=== PATIENT | female | born 1940 | race Caucasian/White ===

== ENCOUNTER 2021-07-08 16:23 | Inpatient (IN) | payer OTHER, MEDICAID ==
[~2021-07-08] VITALS: Ht 157.5 cm; Wt 39.9 kg
[~2021-07-08 16:23] MED LIST: ASPI81TA87 PO; ATOR40TA71 PO; FAMO-290 PO; HYDR-4061 PO; LISI-893 PO; METF-444 PO; MIRT-93 PO; NYSTPW TP; QUET200T30 PO; QUET50TA PO; SITA50 PO
[2021-07-08] MEDS ORDERED: CefTRIAXone 1 GM/DEXTROSE 50 ML IV ONE (16:45)
[2021-07-08] MEDS ORDERED: SODIUM CHLORIDE 0.9% 1,000 ML IV ONE (16:45)
[2021-07-08] MEDS ORDERED: VANCOMYCIN HCL 1 GM/D5% WATER 200 ML IV ONE (16:45)
[2021-07-08 17:32] LABS: BASOPHILS % (AUTO) 0.1 % (0.0-2.0); EOSINOPHILS % (AUTO) 0.1 % (1.0-6.0); HEMOGLOBIN 8.4 g/dL (12.0-16.0); LYMPHOCYTES # (AUTO) 1.5 K/uL (1.0-4.8); LYMPHOCYTES % (AUTO) 11.4 % (22.0-44.0); MEAN CORPUSCULAR HEMOGLOBIN 30.7 pg (26.0-34.0); MEAN CORPUSCULAR HGB CONC 32.1 G/dL (31.0-37.0); MEAN CORPUSCULAR VOLUME 96 fL (80-100); MONOCYTES # (AUTO) 0.6 K/uL (0.1-1.0); MONOCYTES % (AUTO) 4.8 % (2.0-9.0); NEUTROPHILS # (AUTO) 11.1 K/uL (1.8-7.7); NEUTROPHILS % (AUTO) 83.6 % (40.0-70.0); PLATELET COUNT (AUTO) 197 K/uL (150-450); RED BLOOD CELL COUNT(AUTO) 2.72 MIL/uL (4.00-5.20)
[2021-07-08 17:53] LABS: LACTIC ACID 7.9 mmol/L (0.4-2.0)
[2021-07-08 17:56] LABS: ANION GAP 17 mmol/L (8-16); CALCIUM, TOTAL 7.7 mg/dL (8.8-10.5); CARBON DIOXIDE 20 mmol/L (22-29); CHLORIDE 109 mmol/L (98-107); CREATININE 2.46 mg/dL (0.60-1.30); GLOMERULAR FILTR. RATE CALC 19 mL/min (>60); GLUCOSE,RANDOM 118 mg/dL (70-110); POTASSIUM 4.4 mmol/L (3.5-5.1); SODIUM SERUM 146 mmol/L (136-145); UREA NITROGEN, BLOOD 80 mg/dL (7-18)
[2021-07-08 18:01] LABS: ALANINE AMINOTRANSFERASE 9 U/L (12-78); ALBUMIN 1.3 g/dL (3.4-5.0); ALKALINE PHOSPHATASE 49 U/L (46-116); ASPARTATE AMINOTRANSFERASE 38 U/L (15-37); BILIRUBIN,TOTAL 0.5 mg/dL (0.1-1.0); TOTAL PROTEIN, SERUM 4.9 g/dL (6.4-8.2)
[2021-07-08] MEDS ORDERED: *CLINICAL-LEVOFLOXACIN IVPB DOSING CLINICAL ONE (18:30)
[2021-07-08] MEDS ORDERED: ACETAMINOPHEN 325 MG TABLET PO PRN (18:30)
[2021-07-08] MEDS ORDERED: BISACODYL 10 MG RECTAL RECTAL SUPPOSITORY PR PRN (18:30)
[2021-07-08] MEDS ORDERED: DEXTROSE 50%-WATER 25 GM/50 ML SYRINGE IVP PRN (18:30)
[2021-07-08] MEDS ORDERED: LEVOFLOXACIN 500 MG/D5% WATER 100 ML IV ONE (18:45)
[2021-07-08] MEDS ORDERED: ASPI-1444 PO (19:05)
[2021-07-08] MEDS ORDERED: MORP60TA49 PO (19:05)
[2021-07-08] MEDS ORDERED: MIRT7.5T11 PO (19:05)
[2021-07-08] MEDS ORDERED: SITA25 PO (19:05)
[2021-07-08] MEDS ORDERED: FAMO20 PO (19:05)
[2021-07-08] MEDS ORDERED: METF-1211 PO (19:05)
[2021-07-08] MEDS ORDERED: INSNOV SQ (19:05)
[2021-07-08] MEDS ORDERED: ATOR-2 PO (19:05)
[2021-07-08] MEDS ORDERED: ZINC220C14 PO (19:05)
[2021-07-08] MEDS ORDERED: TRAM50TA4 PO (19:05)
[2021-07-08] MEDS ORDERED: LOSA25TA21 PO (19:05)
[2021-07-08] MEDS ORDERED: INSU100V42 SQ (19:05)
[2021-07-08] MEDS ORDERED: BISA10SU11 PR (19:05)
[2021-07-08] MEDS ORDERED: ASCO500 PO (19:05)
[2021-07-08] MEDS ORDERED: QUET200T PO (19:05)
[2021-07-08] MEDS ORDERED: FURO20 PO (19:05)
[2021-07-08] MEDS: SODIUM CHLORIDE 0.9% 1,000 ML IV SCH (19:06)
[2021-07-08] MEDS: NOREPINEPHRINE 4 MG/D5%-WATER 250 ML IV PRN (19:45)
[2021-07-08] MEDS: HEPARIN SODIUM,PORCINE 5,000 UNITS/ML VIAL SQ SCH (20:38)
[2021-07-08 20:51] LABS: COVID AG,FIA SOURCE NASOPHARYNGEAL
[2021-07-08 22:00] VITALS: BP 91/45
[2021-07-08] MEDS: INSULIN LISPRO 100 UNITS/ML SQ PRN (22:54)
[2021-07-09] VITALS (7 sets, daily range): BP systolic 59–115; BP diastolic 40–63
[2021-07-09 00:07] LABS: GLUCOSE,POINT OF CARE 279 MG/DL (70-110)
[2021-07-09] MEDS: NOREPINEPHRINE 4 MG/D5%-WATER 250 ML IV PRN ×4 (00:07→12:04)
[2021-07-09] MEDS: MORPHINE SULFATE 2 MG/ML SYRINGE IVP PRN ×3 (00:24→11:32)
[2021-07-09] MEDS: SODIUM CHLORIDE 0.9% 1,000 ML IV SCH ×2 (02:18→08:14)
[2021-07-09 06:10] LABS: CALCIUM, TOTAL 7.3 mg/dL (8.8-10.5); CREATININE 1.95 mg/dL (0.60-1.30)
[2021-07-09] MEDS: INSULIN LISPRO 100 UNITS/ML SQ PRN (06:37)
[2021-07-09 06:52] LABS: GLUCOSE,POINT OF CARE 212 MG/DL (70-110)
[2021-07-09 06:52] LABS: GLUCOSE,POINT OF CARE 205 MG/DL (70-110)
[2021-07-09] MEDS ORDERED: SODIUM CHLORIDE 0.9% 250 ML IV ONE (08:08)
[2021-07-09] MEDS: HEPARIN SODIUM,PORCINE 5,000 UNITS/ML VIAL SQ SCH (08:15)
[2021-07-09] MEDS ORDERED: PANTOPRAZOLE SODIUM 40 MG/VIAL IVP SCH (09:00)
[2021-07-09] MEDS ORDERED: MORPHINE SULFATE 4 MG/ML SYRINGE IVP ONE (13:15)
[2021-07-09] MEDS ORDERED: MORPHINE SULFATE 2 MG/ML SYRINGE IVP PRN (13:15)
[2021-07-10] MEDS ORDERED: VANCOMYCIN HCL 750 MG in DEXTROSE 5%-WATER 250 ML IV SCH (08:00)
[2021-07-10] MEDS ORDERED: LEVOFLOXACIN 500 MG/D5% WATER 100 ML IV ONE (16:00)
== END 2021-07-09 13:55 | DRG 871 ==
LOC: EMS 16:27 → ICU 21:44
PROVIDERS: ADMIT Internal Medicine; ATTEND Internal Medicine
DX: A41.9 Sepsis, unspecified organism (principal); L89.154 Pressure ulcer of sacral region, stage 4; G92.8 Other toxic encephalopathy; E43 Unspecified severe protein-calorie malnutrition; J18.9 Pneumonia, unspecified organism; E87.0 Hyperosmolality and hypernatremia; E87.1 Hypo-osmolality and hyponatremia; N17.9 Acute kidney failure, unspecified; Z68.1 Body mass index [BMI] 19.9 or less, adult; Z66 Do not resuscitate; E11.9 Type 2 diabetes mellitus without complications; F03.90 Unspecified dementia, unspecified severity, without behavioral disturbance, psychotic disturbance, mood disturbance, and anxiety; R09.02 Hypoxemia; R62.7 Adult failure to thrive; Z20.822 Contact with and (suspected) exposure to COVID-19; Z51.5 Encounter for palliative care
CPT/HCPCS: 71045; 80048; 80053; 82962; 83605; 84484; 85025; 87040; 87077; 87081; 87205; 93005; 93041; 99291; C9113; G0378; J0696; J1644; J1956; J2270; J3370; J3490; J7030; J7050; J7060; 36415-L1; 36415-TC